=== PATIENT | male | born 1960 | race American Indian/Alaskan Native ===

== ENCOUNTER 2018-02-05 14:44 | Emergency (ER) | payer BC, OTHER ==
[~2018-02-05] VITALS: Ht 172.7 cm; Wt 89.8 kg
[~2018-02-05 14:44] MED LIST: CHLORHEXIDINE118 M1 TOP; CRESTOR20 MG PO; DIALYVITE V5000 UNIT PO; DILTIAZEM ER120 M1 PO; ELIQUIS5 MG PO; ERYTHROMYCIN 2%60 ML TOP; GLUCOPHAGE500 MG PO; LISINOPRIL20 MG PO; OXYBUTYNIN CHLOR5 MG PO; PSYLLIUM HUSK1 GM MISC
[2018-02-05] MEDS ORDERED: LIDOCAINE1 EACH TD (15:02)
[2018-02-05] MEDS ORDERED: FLECTOR1 EACH TOP (15:02)
[2018-02-05] MEDS ORDERED: NORTRIPTYLINE H10 MG PO (15:03)
== END 2018-02-05 16:35 | disposition home or self-care (01) ==
LOC: ED 14:44
DX: S05.02XA Injury of conjunctiva and corneal abrasion without foreign body, left eye, initial encounter (principal); I10 Essential (primary) hypertension; E11.9 Type 2 diabetes mellitus without complications; F17.200 Nicotine dependence, unspecified, uncomplicated; Z88.5 Allergy status to narcotic agent; Z88.8 Allergy status to other drugs, medicaments and biological substances; Z79.84 Long term (current) use of oral hypoglycemic drugs; Z79.899 Other long term (current) drug therapy; Z23 Encounter for immunization; X58.XXXA Exposure to other specified factors, initial encounter; W22.09XA Striking against other stationary object, initial encounter; Y92.89 Other specified places as the place of occurrence of the external cause
CPT/HCPCS: 90471; 90715; 99283

== ENCOUNTER 2018-03-08 15:39 | Emergency (ER) | payer BC, OTHER ==
[~2018-03-08] VITALS: Ht 172.7 cm; Wt 89.8 kg
[~2018-03-08 15:39] MED LIST changes: +FLECTOR1 EACH TOP; +LIDOCAINE1 EACH TD; +NORTRIPTYLINE H10 MG PO
== END 2018-03-08 18:26 | disposition home or self-care (01) ==
LOC: ED 15:39
DX: D72.829 Elevated white blood cell count, unspecified (principal); I10 Essential (primary) hypertension; E11.9 Type 2 diabetes mellitus without complications; F17.200 Nicotine dependence, unspecified, uncomplicated; Z88.5 Allergy status to narcotic agent; Z88.8 Allergy status to other drugs, medicaments and biological substances; Z79.899 Other long term (current) drug therapy; Z79.84 Long term (current) use of oral hypoglycemic drugs
CPT/HCPCS: 80053; 81001; 85025; 96360; 99283; J7030

== ENCOUNTER 2019-11-10 21:13 | Inpatient (IN) | payer BC, OTHER ==
[~2019-11-10] VITALS: Ht 172.7 cm; Wt 94.8 kg
[2019-11-10] MEDS ORDERED: LANTUS100 UNITS/ SUB-Q (21:45)
--- NOTE | 2019-11-11 01:35 | NUR ---
PT ARRIVED TO THE FLOOR VIA STRETCHER, AMBULATED SBA TO BATHROM TO VOID AND NOW RESTING IN BED. SIGNIFICANT OTHER W/ PT. VSS, PT REPORTS TOLERABLE 2/10 PAIN, A/OX4. ABDOMINAL TENDERNESS NOTED, BOWEL TONES ACTIVE. DENIES NAUSEA. IV FLUIDS INFUSING AT 125MLS/HR, SITE WNL. PT DENIES FURTHER NEEDS, CALL LIGHT IN REACH. PT ORIENTED TO ROOM. MOUTH SWABS PROVIED FOR NPO STATUS.
--- NOTE | 2019-11-11 01:48 | NUR ---
VITALS AND WEIGHT DONE AND CHARTED. BEDSIDE TABLE AND CALL LIGHT IN REACH.
--- NOTE | 2019-11-11 03:07 | NUR ---
FAX REQUEST SENT TO TELEPHARMACY FOR RETIMING OF [facility].
--- NOTE | 2019-11-11 06:11 | NUR ---
VS AND I&O'S COMPLETE. PT DENIES NEED FOR PAIN MEDICATION, NO DISTRESS NOTED. FRIEND IN ROOM. IV FLUIDS INFUSING, SITE WNL. NO NEEDS VERBALIZED, CALL LIGHT IN REACH.
--- NOTE | 2019-11-11 06:54 | NUR ---
SPOKE TO DR MARQUIS REGARDING ORDERS FOR INSULIN. THIS RN INFORMED BENITEZ OF CURRENT BS OF 190. TELEPHONE ORDERS READ BACK TO DISCONTINUE CURRENT INSULIN ORDERS AND PUT IN ACCUCHECKS Q6H ALONG WITH REGULAR INSULIN MODERATE SLIDING SCALE Q6H. KEEP PT NPO AT THIS TIME. TELEPHONE ORDERS READ BACK FOR FOR A CHEM 20 AND CBC.
--- NOTE | 2019-11-11 06:56 | NUR ---
PLACED ORDERS FOR [facility] AND CHEM20 FOR PRIMARY GOVIND EDEN. SHE HAD A TORBC FROM DR MARQUIS.
[2019-11-11] MEDS ORDERED: ELIQUIS5 MG PO (07:22)
[2019-11-11] MEDS ORDERED: TOPROL XL25 MG PO (07:23)
[2019-11-11] MEDS ORDERED: LANTUS SOL100 UNIT/1 SUB-Q (07:23)
[2019-11-11] MEDS ORDERED: TRULICITY1.5 MG/0.5 SUB-Q (07:25)
--- NOTE | 2019-11-11 08:05 | NUR ---
PT AWAKE FOR REPORT THIS MORNING, ALERT AND INTERACTIVE. RESTING IN BED IV INFUSING DENIES PAIN. CONTINUES NPO ANTICIPATES MD VISIT
--- NOTE | 2019-11-11 11:24 | NUR ---
PT RESTING IN BED, BOLUS INFUSING. DR MARQUIS IN TO SEE PT TO DISCUSS PLANS FOR SURGERY TOMORROW. SCD'S IN PLACE. 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
--- NOTE | 2019-11-11 14:03 | NUR ---
PT UP INDEPENDANTLY IN THE ROOM APPEARS STEADY ON HIS FEET, USES URINAL REQUESTED. PT DENIES PAIN, NAUSEA, OR OTHER DISCOMFORTS. VISITORS PRESENT X2
--- NOTE | 2019-11-11 17:54 | NUR ---
PT REMAINS AWAKE RESTING IN BED AT THIS TIME, DENIES PAIN THIS ENTIRE SHIFT. TOLERATING CLEAR LIQUIDS NO NAUSEA OR OTHER DISCOMFORTS
--- NOTE | 2019-11-11 18:18 | NUR ---
PATIENT IS AWAKE WATCHING TV, FRESH WATER AND CALL LIGHT IN REACH
--- NOTE | 2019-11-11 19:15 | NUR ---
SHIFT REPORT RECEIVED FROM [facility] GOVIND SALMON AT BEDSIDE. PT RESTING IN BED WITH EYES CLOSED. RR WNL. IV FLUIDS INFUSING. CALL LIGHT IN REACH.
--- NOTE | 2019-11-11 19:43 | NUR ---
NEW BAG OF IV FLUIDS D5LR INFUSING AT 85MLS/HR, SITE WNL. URINAL EMPTIED, SCD'S ON. NO FURTHER REQUESTS, CALL LIGHT IN REACH.
--- NOTE | 2019-11-11 21:55 | NUR ---
ROUNDED CHARGE. PATIENT IS RESTING IN BED. PATIENT RATES PAIN AT A 5/10 IN RUQ. REPORTED TO PRIMARY RN KAREY. PATIENT DENIES ANY FURTHER NEEDS. CALL LIGHT IN REACH.
--- NOTE | 2019-11-11 22:15 | NUR ---
ASSESSMENT COMPLETE, SCHEDULED MEDS GIVEN (SEE EMAR). VSS, APICAL HR 62 BY THIS RN. PT DENIES SOB OR CHEST PAIN, LUNG SOUNDS CLEAR. SCHEDULED TYLENOL AND PRN TORADOL GIVEN FOR 6/10 ABDOMINAL PAIN. PT REPORTS BURNING WHEN FLUSHING, NEW IV SITE PLACED INRIGHT FOREARM, IV ABX NOW INFUSING. SITE WNL. BOWEL TONES ACTIVE. NO FURTHER NEEDS, CALL LIGHT IN REACH.
--- NOTE | 2019-11-11 23:45 | NUR ---
WATER AT BEDSIDE REMOVED, PT MADE NPO AT THIS TIME. CALL LIGHT IN REACH, NO ADDITIONAL NEEDS VERBALIZED.
--- NOTE | 2019-11-12 00:54 | NUR ---
PT RESTING IN BED WITH EYES CLOSED. RR EVEN AND UNLABORED, NO DISTRESS NOTED. PT APPEARS COMFORTABLE, CALL LIGHT IN REACH. SCD'S ON. IV FLUIDS INFUSING AT 85MLS/HR.
--- NOTE | 2019-11-12 01:04 | NUR ---
CALL LIGHT ANSWERED. SBA TO RESTROOM FOR VOID AND BACK TO BED. IVF INFUSING WNL. CALL LIGHT IN REACH. NO ADDITIONAL REQUESTS.
--- NOTE | 2019-11-12 02:00 | NUR ---
VITALS AND I&OS DONE AND CHARTED. BEDSIDE TABLE AND CALL LIGHT IN REACH. PT NEEDS NOTHING MORE AT THIS TIME.
--- NOTE | 2019-11-12 02:42 | NUR ---
ROUNDING ON PT, RESPIRATIONS EVEN AND UNLABORED. NO SIGNS OF DISTRESS NOTED. IV FLUIDS INFUSING, SITE WNL. PT REPORTING FEELING OF HUNGER, PRN ACCUCHECK 164. PT REMAINS NPO, ABD TENDERNESS TO LUQ NOTED. NO NAUSEA REPORTED. SCD'S ON, CALL LIGHT IN REACH.
--- NOTE | 2019-11-12 04:06 | NUR ---
PT HAD AN UNEVENTFUL NIGHT, SLEPT OFF AND ON. VSS, A/OX4, USES CALL LIGHT APPROPERIATELY. SBA WITH AMBULATION, SCD'S ON. PAIN CONTROLLED WITH SCHEDULED AND PRN PAIN MEDICATIONS. D5LR INFUSING AT 85MLS/HR, SITE WNL. PT NPO, SCHEDULED ACCUCHECKS AND INSULIN SS.
--- NOTE | 2019-11-12 05:28 | NUR ---
HELPED PT TO THE SIDE OF THE BED TO USE HIS URINAL. VITALS AND I&OS DONE AND CHARTED. BEDSIDE TABLE AND CALL LIGHT IN REACH.
--- NOTE | 2019-11-12 05:57 | NUR ---
per md order, okay for pt to have scheduled po meds. scheduled tylenol given with small sip of water. iv abx infusing, site wnl. pt rports pain a tolerable 2/10. scd's on. lr w/ straight tubing primed and hanging in room for surgery.
--- NOTE | 2019-11-12 08:15 | NUR ---
PATIENT SITTING UP ON THE EDGE OF THE BED. EMPTY URINAL. CALL LIGHT WITHIN REACH. NO OTHER NEEDS AT THIS TIME
--- NOTE | 2019-11-12 09:02 | NUR ---
PATIENT RESTING IN BED. VITAL SIGNS AND I&O DONE. CALL LIGHT WITHIN REACH. NO OTHER NEEDS AT THIS TIME
--- NOTE | 2019-11-12 09:30 | NUR ---
PT SITTING UP IN BED AWAKE, ALERT AND ORIENTED TO ALL. DENIES PAIN OR NAUSEA AT THIS TIME. ASSESSMENT COMPLETED. PT DENIES QUESTIONS, NEEDS, OR CONCERNS AT THIS TIME. CALL LIGHT WITHIN REACH.
--- NOTE | 2019-11-12 09:50 | NUR ---
Spoke with Derrell. He is awaiting surgery this afternoon. Lives in [facility] with his , Christiane. 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 Denies use of DME. Plans to go home with his on discharge.
--- NOTE | 2019-11-12 11:20 | NUR ---
PT CALLED REGARDING IV. IV SITE WITH NOTABLE LOCALIZED BASEBALL SIZE INFILTRATION. NO PAIN REPORTED, NO REDNESS VISUALIZED. IV DC'D AND NEW IV STARTED IN RIGHT FA BY REBEKAH SCHAEFFER RN. IVF RESTARTED.
--- NOTE | 2019-11-12 11:21 | NUR ---
PATIENT RESTING IN BED. PATIENT WIPE DOWN FOR SURGERY. CALL LIGHT WITHIN REACH. NO OTHER NEEDS AT THIS TIME
--- NOTE | 2019-11-12 13:10 | NUR ---
PT SITTING UP IN BED. DENIES PAIN OR OTHER NEEDS OR CONCERNS AT THIS TIME. CALL LIGHT WITHIN REACH.
--- NOTE | 2019-11-12 13:33 | NUR ---
PATIENT RESTING IN BED. IN ROOM. VITAL SIGNS AND I&O DONE. CALL LIGHT WITHIN REACH. NO OTHER NEEDS AT THIS TIME
--- NOTE | 2019-11-12 13:48 | NUR ---
PT RESTING IN BED, ALERT, ORIENTED AND WAITING FOR SURGERY LATER THIS PM. DR MARQUIS IS SCHEDULED FOR SURGERY, PT SEEMS PREPARED. MENTIONED THAT HE IS TIRED OF FEELING BAD. PT REQUESTED PRAYER, WILL FOLLOW NEEDED
--- NOTE | 2019-11-12 14:10 | NUR ---
PT TRANSPORTED TO OR FOR SCHEDULED PROCEDURE.
--- NOTE | 2019-11-12 14:50 | HP ---
[facility] [address] [place], [place] [address] Signed ADMISSION DATE: 11/11/2019 REASON FOR ADMISSION: Acute calculous cholecystitis, probable choledocholithiasis. HISTORY: This 59-year-old white man lives in [place], [place] and has had increasing epigastric and right subcostal pain for the past few weeks. He has been taking antacids for this, which has been actually somewhat beneficial from time to time. He is known to this institution having undergone colonoscopy by Dr. Hector Davis in 2016 as well as upper endoscopy. He had a normal upper endoscopy at that time. He had hemorrhoidal disease as well as a small left-sided prostate nodule. His pain worsened and he presented to the emergency room and was evaluated by Dr. Doan and found to have epigastric pain and tenderness, on that basis underwent imaging study to include ultrasound of the gallbladder. This demonstrated at least one stone in the gallbladder with a hydropic gallbladder and dilated common bile duct. Notably lab studies showed signs of possible biliary obstruction with a presenting total bilirubin of 2.3 and alkaline phosphatase of 446, ALT 240, and AST of 235. Subsequent lab studies this morning show an increased bilirubin to 3.0, direct component 2.0, and AST decreased to 114, ALT to 196, and alkaline phosphatase now 405. He continues to have pain in the epigastric and right subcostal area. The patient has had no nausea or vomiting while hospitalized. He is additionally noted to have an elevated white count at presentation of 14.3, subsequently today 12.3, hematocrit of 38.2. It is notable that he is chronically anticoagulated with Eliquis for what sounds like paroxysmal atrial fibrillation, though that is not entirely certain. The patient also has insulin-dependent diabetes mellitus as well as hypertension. MEDICATIONS: Currently include Eliquis, Lantus insulin, lisinopril, oxybutynin, Toprol-XL, and Trulicity. REVIEW OF SYSTEMS: He denies any precordial chest pain or shortness of breath or dysphagia. He has had no blood per rectum. Electronically Signed By: LAURA MARQUIS MD 11/12/19 1450 PATIENT NAME: DEEPIKA FAIR HISTORY AND PHYSICAL DATE OF : 62 REPORT #: [id number] PHYSICIAN: LAURA MARQUIS MD PCP: AMY HOLGUIN REPORT IS CONFIDENTIAL AND NOT TO BE RELEASED WITHOUT AUTHORIZATION [facility] [address] [place] [address] Signed SOCIAL HISTORY: He is . He lives in [place], [place]. He sees Amy Holguin at [facility]. PHYSICAL EXAMINATION: GENERAL: Pleasant yurok man, who looks to be in no severe distress at this time. He is not systemically toxic. HEENT: Mucous membranes are dry. Trachea is midline. He has no carotid bruit. CHEST: Clear. HEART: Regular without murmur. I detect no ectopy at this time. ABDOMEN: Obese, but soft generally. There is tenderness to deep palpation in the epigastric and right subcostal area. There is no palpable mass. The clinical jaundice is not yet apparent. EXTREMITIES: Show no clubbing, cyanosis, or edema. LABORATORY STUDIES: This morning show white count of 12.3, hematocrit of 38.2, platelets 327,000. His Chem profile shows normal electrolytes, creatinine of 0.98, glucose of 193, uric acid 4.1, phosphorus 2.2, bilirubin 3.0, direct component 2, indirect 1. AST is 140, ALT 196, alkaline phosphatase 405, total protein is 5.6. Lipase yesterday was 48. I have reviewed his ultrasound in detail, which shows a visible gallbladder wall at least one stone in the lumen of the gallbladder and possibly dilated common bile duct as noted on image 11 of 39, series 1. Additionally, image 33 of 39. ASSESSMENT: Patient clearly has acute calculous cholecystitis and may well have choledocholithiasis. His liver enzymes are highly suggestive of that. I discussed with him in detail the pathophysiology of biliary disease and recommendation of treatment to include cholecystectomy preferred by laparoscopic approach. It is notable, however, that he does take Eliquis, a thrombin inhibitor which has no reliable antidote and on that basis, a deferral of operation until at least tomorrow would be prudent. He last took his dosage yesterday morning. He is now at 24 hours. A 48-hour window would be preferable. I would anticipate laparoscopic cholecystectomy with cholangiogram and laparoscopic common duct exploration. Clearance of the duct may require an open procedure to include open common duct exploration, T-tube and so forth we discussed this. For now, we will manage his diabetes with sliding scale insulin. We may consider consultation with the hospitalist to assist in this endeavor. He will be maintained on his usual medications other than the Eliquis. We will allow clear liquids in minimal amounts for comfort. He needs additional fluid resuscitation at this time. Feeding Electronically Signed By: LAURA MARQUIS MD 11/12/19 1454 PATIENT NAME: DEEPIKA FAIR HISTORY AND PHYSICAL DATE OF : 62 REPORT #: [id number] PHYSICIAN: LAURA MARQUIS MD PCP: AMY HOLGUIN REPORT IS CONFIDENTIAL AND NOT TO BE RELEASED WITHOUT AUTHORIZATION [facility] [address] [place], [place] [address] Signed would be contraindicated as it may worsen his situation. The risks of bleeding, infection, bile duct injury, need for open procedure and other unforeseen complications was reviewed in detail with him. He understands and wished to proceed. MD LINA Carlin/JASVIRL /[id number] cc: MD Amy Hutchison Copies: JOSH DOAN MD, ELIZABETH ~ Electronically Signed By: LAURA MARQUIS MD 11/12/19 1450 PATIENT NAME: DEEPIKA FAIR HISTORY AND PHYSICAL DATE OF : 62 REPORT #: [id number] PHYSICIAN: LAURA MARQUIS MD PCP: AMY HOLGUIN REPORT IS CONFIDENTIAL AND NOT TO BE RELEASED WITHOUT AUTHORIZATION
--- NOTE | 2019-11-12 19:18 | NUR ---
11/12/191917 Geraldine Bills 190: PT ARRIVES TO PACU FROM OR WITH EYES CLOSED ON 8L VIA MASK. PT RESP EVEN AND UNLABORED. PT DOES NOT AROUSE TO VERBAL OR PAINFUL STIMULI. REBEKA SANCHEZ AT BEDSIDE GOVIND VALENTE ASSISTING.
--- NOTE | 2019-11-12 19:31 | NUR ---
RECEIVED REPORT ON PT, HE IS IN PACU AT THIS TIME.
--- NOTE | 2019-11-12 21:00 | NUR ---
PT TRANSFERED TO CCU VIA STRETCHER BY MULTI PUNCH OPERATOR, ACCOMPANIED BY DR HARKINS. PT REPORT RECIEVED AT THIS TIME. PT ALERT AND ORIENTED, NO COMPLAINTS OF PAIN OR NAUSEA. PT CURRENTLY IN SINUS RHYTHM AT A RATE OF 80-90 BEATS PER MINUTE. ALL OTHER VS WNL. PT ON 5 L NC IN PACU, CURRENTLY HAS O2 SATS AT 96 PERCENT ON 2 L NC.
--- NOTE | 2019-11-12 22:30 | NUR ---
SCHEDULED MEDICATIONS ADMINISTERED. IV FLUIDS INFUSING AT RATE OF 85 MLS/ HR. PT LESS DROWSY, CONTINUES TO DENY PAIN OR NAUSEA. CALL LIGHT WITHIN REACH. REAMINS VISIBLE FROM NURSES STATION. NO FURTHER NEEDS AT THSI TIME.
--- NOTE | 2019-11-12 23:58 | NUR ---
IN ROOM TO CHECK ON PATIENT, HE REPORTS AN INCREASE IN ABD PAIN AT INCISION SITE. PRN MEDICATION GIVEN (SEE EMAR). ASSESSMENT COMPLETED. PT ASKING QUESTIONS ABOUT EPISODE OF SVT, AND SURGERY. ALL QUESTIONS ANSWERED. CALL LIGHT WITHIN REACH. NO FURTHER NEEDS AT THIS TIME.
--- NOTE | 2019-11-13 01:00 | NUR ---
IN ROOM TO ASSESS PT PAIN, PT SLEEPING. BREATHING EVEN AND UNLABORE R=18. IN SINUS RHYTHM ON THE MONITOR WITH HR IN THE 70S. CALL LIGHT WITHIN REACH. NO FURTHER ASSESSED NEEDS AT THIS TIME.
--- NOTE | 2019-11-13 02:20 | NUR ---
PT ON ROOM AIR AT THIS TIME. SPO2 AT 94 PERCENT. WILL CONTINUE TO MONITOR.
--- NOTE | 2019-11-13 04:30 | NUR ---
IN ROOM FOR ASSESSMENT. PT STATES PAIN IS UNDER CONTROL, DENIES THE NEED FOR PRN PAIN MEDICATION. ASSISTED PT WITH REPOSITIONING IN THE BED. EMPTIED T TUBE AND SHAYY DRAIN. PT USED IS. FURTHER DISCUSSED PLAN OF CARE FOR THE MORNING. CALL LIGHT WITHIN REACH. NO FURTHER NEEDS AT THIS TIME
--- NOTE | 2019-11-13 06:53 | EKG ---
[facility] [address] [facility] [place] [address] Signed Sinus rhythm with occasional and consecutive premature ventricular complexes and fusion complexes Abnormal ECG No previous ECGs available Confirmed by PARTHA HARKINS MD ([id number]) on 11/13/2019 6:53:12 AM Electronically Signed By: PARTHA HARKINS MD 11/13/19 0653 PATIENT NAME: DEEPIKA FAIR NEY Electrocardiogram DATE OF : 62 PHYSICIAN: PARTHA HARKINS MD REPORT #: [id number] REPORT IS CONFIDENTIAL AND NOT TO BE RELEASED WITHOUT AUTHORIZATION
--- NOTE | 2019-11-13 06:53 | EKG ---
[facility] [address] [facility] [place] [address] Signed Undetermined rhythm Right bundle branch block Abnormal ECG When compared with ECG of 12-NOV-2019 14:54, (Unconfirmed) Current undetermined rhythm precludes rhythm comparison, needs review Right bundle branch block is now present Confirmed by PARTHA HARKINS MD ([id number]) on 11/13/2019 6:53:35 AM Electronically Signed By: PARTHA HARKINS MD 11/13/19 0653 PATIENT NAME: KYRIE FIARAURORA BREWSTER Electrocardiogram DATE OF : 62 PHYSICIAN: PARTHA HARKINS MD REPORT #: [id number] REPORT IS CONFIDENTIAL AND NOT TO BE RELEASED WITHOUT AUTHORIZATION
--- NOTE | 2019-11-13 08:22 | NUR ---
MORPHINE 6 MG IV GIVNE FOR POST-OP PAIN.
--- NOTE | 2019-11-13 08:30 | NUR ---
ASSESSMENT COMPLETE. C/O POST-OP PAIN. IVF AND SALMERON CATH PATENT. TALKED WITH PATIENT ABOUT POC FOR DAY, IS UNDERSTANDING.
--- NOTE | 2019-11-13 09:00 | NUR ---
STATES PAIN IS MUCH LESS NOW. SITTING UP IN BED TO TAKE CL.LIQ BREAKFAST. PATIENT KNOWS HE CAN HAVE MORE TO EAT IF HE WISHES.
--- NOTE | 2019-11-13 09:59 | NUR ---
...........PT EDUCATION........ IN TALKING WITH PT THIS AM DUE TO LAP RAHEEM BECOMING AN OPEN RAHEEM WITH DRAINS, EDUCATIONAL MATERIAL GIVEN REGARDING AFTER CARE OF OPEN RAHEEM, GALLBLADDER DIET, DRAINAGE TUBE CARE AT HOME, AND FORM FOR KEEPING TRACT OF HOW MUCH DRAINAGE. WE DISCUSSED THIS SOMEWHAT BUT PT REALLY TIRED, HE DEMONSTATED COUGHING AND DEEP BREATHING AND USING AN ABD SPLINT PILLOW FOR MOVING AND COUGHING AND DEEP BREATHING. WE TALKED THAT I WOULD RETURN AT ANOTHER TIME WHEN HIS IS HERE PER HIS WISHES.
--- NOTE | 2019-11-13 12:20 | NUR ---
UP TO CHAIR. SPONGE BATH GIVEN. AFTER BATH PATIENT AMBULATED IN HALLWAY. TOLERATED WELL.
--- NOTE | 2019-11-13 13:20 | NUR ---
MORPHINE 6 MG IV REPEATED FOR C/O POST OP PAIN. CONTINUES TO SIT IN CHAIR.
--- NOTE | 2019-11-13 16:29 | NUR ---
DR. MARQUIS UPDATED ON PATIENT. ORDERS RECIEVED TO TRANSFER TO MEDICAL FLOOR. SALMERON CATH DC'D, MONITOR DC'D
--- NOTE | 2019-11-13 16:45 | NUR ---
REPORT TO MED-SURG.
--- NOTE | 2019-11-13 17:01 | NUR ---
NEW ADMIT TO THE FLOOR. PT AWAKE, A&OX4. PT IS ON RA, RESP EVEN AND NON LABORED. IV FLUIDS INFUSING. PT DENIES PAIN AND OR DISCOMFORT. DINNER ORDERED. NO NEEDS AT THIS TIME. CALL LIGHT WITHIN REACH. ORIENTED PT TO ROOM AND CALL LIGHT SYSTEM.
--- NOTE | 2019-11-13 17:41 | NUR ---
PATIENT SITTING IN CHAIR WATCHING TV. CALL LIGHT IN REACH. NO FURTHER NEEDS AT THIS TIME.
--- NOTE | 2019-11-13 18:46 | NUR ---
ADMIN IBUPORFEN 600MG PO FOR 4/10 ABD PAIN.
--- NOTE | 2019-11-13 19:08 | NUR ---
IN ROOM FOR REPORT, PT IS AWAKE IN BED. HE DENIES NEEDS AT THIS TIME. CALL LIGHT IS CLOSE.
--- NOTE | 2019-11-13 22:40 | NUR ---
IN ROOM TO ASSESS PT AND ADMINISTER MEDICATIONS. ADMINISTERED TYLENOL FOR 5/10 PAIN. PT REPORTS IT FEELING SORE AND HE IS JUST MOVING SLOWLY. ASSISTED PT TO THE RESTROOM AND BACK TO BED. DRESSINGS ARE ALL INTACT AND THERE IS SOME SLIGHT SHADOWING ON GAUZE. SHAYY IS DRAINING SEROSANGUINOUS DRAINAGE AND T-TUBE IS DRAINING YELLOW. PT DENIES FURTHER NEEDS AT THIS TIME. CALL LIGHT IS CLOSE.
--- NOTE | 2019-11-14 00:07 | NUR ---
PT IS RESTING WITH EYES CLOSED, RR IS EVEN AND NONLABORED CALL LIGHT IS CLOSE.
--- NOTE | 2019-11-14 02:24 | NUR ---
PT IS RESTING WITH EYES CLOSED, RR IS EVEN AND NONLABORED. CALL LIGHT IS CLOSE.
--- NOTE | 2019-11-14 04:12 | NUR ---
PT IS RESTING WITH EYES CLOSED, RR IS EVEN AND NONLABORED. CALL LIGHT IS CLOSE.
--- NOTE | 2019-11-14 05:45 | NUR ---
ADMINISTERED ANCEF AND TYLENOL PT DENIES FURTHER NEEDS AT THIS TIME. DRESSING ARE CDI WITH SLIGHT SHADOWING NOTED ON GAUZE. PT USED URINAL AND STATES HE IS PASSING ALOT OF GAS WHICH IS HELPING DECREASE PAIN. CALL LIGHT IS CLOSE AND IV IS INFUSING FINE.
--- NOTE | 2019-11-14 08:00 | NUR ---
PATIENT UP TO BATHROOM THEN TO CHAIR FOR BREAKFAST. HANDS AND FACE WASHED. FRESH LINENS. CALL BUTTON IN REACH. TALKED TO PATIENT ABOUT BATH AND ORAL CARE AFTER BREAKFAST. NO OTHER NEEDS AT THIS TIME.
--- NOTE | 2019-11-14 09:15 | NUR ---
Spoke with Jd. He is up in chair with cough pillow. States he feels better today, but still not feeling that well. Pt. denies further needs at this time. Plans to dc to home to [place] when he is released by Dr. Church, unsure of day.
--- NOTE | 2019-11-14 11:10 | PATH ---
[facility] [address] [place], [place] [address] Signed SPECIMEN(S): A GALLBLADDER AND GALLSTONES SPECIMEN(S): B INDER CHOLECYSTIC LYMPH NODE SPECIMEN SOURCE: A. GALLBLADDER AND GALLSTONES B. INDER CHOLECYSTIC LYMPH NODE CLINICAL HISTORY: Cholecystitis, acute calculous, probable choledocholithiasis, acute cholecystitis with common duct stone. FINAL PATHOLOGIC DIAGNOSIS: A. Gallbladder, cholecystectomy: - Acute on chronic cholecystitis. - Cholelithiasis. B. Lymph node, pericholecystic, excisional biopsy: - One benign reactive lymph node. NAL:cml:C2NR MICROSCOPIC EXAMINATION: Histologic sections of all submitted blocks are examined by light microscopy. These findings, together with the gross examination, support the pathologic diagnosis. GROSS DESCRIPTION: Two specimens are received in two containers, labeled "GW." A. The specimen, labeled "A," and designated on the requisition "gallbladder," is received in formalin and consists of Specimen: Intact, previously opened gallbladder. Dimensions: 12.2 x 4.9 x 2.7 cm. Serosa: Purple and smooth. Cystic Duct: Unobstructed. Calculi: Three smooth, dark brown choleliths ranging from 1.0-1.3 cm in greatest dimension. Mucosa: Mayes-brown and velvety. Wall thickness: 0.3 cm. Lymph node: No pericystic lymph nodes are grossly identified. Additional: None. Credit Collections Specialist sections are submitted in cassette (A1). B. The specimen, labeled "B," and designated on the requisition "pericholecystic node," is received in formalin and consists of a 2.4 x 2.1 x PATIENT NAME: DEEPIKA FAIR PATHOLOGY DATE OF : 62 REPORT #: [id number] PHYSICIAN: JOHNNIE DE ANDA PCP: JOYCE HOLGUIN REPORT IS CONFIDENTIAL AND NOT TO BE RELEASED WITHOUT AUTHORIZATION [facility] [address] [place] [address] Signed 0.5 cm segment of soft, ragged, mayes-purple tissue. Within the tissue aggregate is a 1.1 x 1.0 x 0.5 cm smooth, mayes-brown nodule consistent with a possible lymph node. The nodule is serially sectioned, revealing a smooth, mayes cut surface and is submitted entirely in (B1). KM (under the direct supervision of a pathologist) The Gross Description was prepared using a voice recognition system. The report was reviewed for accuracy; however, sound-alike word errors, addition and/or deletions may occur. If there is any question about this report, please contact Client Services. PERFORMING LABORATORY: The technical component was performed by [facility], [address] [place] [id number] (Screw Cutter: Dee Eason MD; CLIA# [id number]). [facility], [address] [address] (CLIA# [id number]). Diagnostician: Regine Cortez MD Pathologist Electronically Signed 11/14/2019 Copies: ~ PATIENT NAME: DEEPIKA FAIR PATHOLOGY DATE OF : 62 REPORT #: [id number] PHYSICIAN: JOHNNIE PATHOLOGY PCP: JOYCE HOLGUIN REPORT IS CONFIDENTIAL AND NOT TO BE RELEASED WITHOUT AUTHORIZATION
--- NOTE | 2019-11-14 12:56 | NUR ---
PT SITTING IN CHAIR WATCHING TV. PT GRIMACED WHEN HE REPOSITIONING IN CHAIR. COSMETIC MAKER AND SORE FROM SURGERY. PT ALSO STATED HE DIDN'T SLEEP WELL LAST NIGHT. PT IS ALERT AND ORIENTED AND CARRIED ON GOOD CONVERSATION. PT THANKED ME FOR SPENDING TIME WITH HIM EXTENDED A BLESSING, AND WILL FOLLOW NEEDED
--- NOTE | 2019-11-14 13:55 | NUR ---
PATIENT WAS ADMITTED AT HIGH RISK FOR MALNUTRITION DUE TO EATING POORLY PRIOR TO ADMISSION AND UNSURE OF WEIGHT LOSS. HIS APPETITE IS MUCH BETTER POST-OP FROM 11/11. CURRENT DIET IS 60 GM CONSISTENT CARB. WILL CONTINUE TO MONITOR.
--- NOTE | 2019-11-14 14:15 | NUR ---
PT BACK FROM WALKING LOOP AROUND NURSES STATION, INCREASED FLATUS, STATES HE IS ALSO STARTING TO HAVE CRAMPING AND NEEDS SOMETHING STRONGER THAN THE TYLENOL FOR PAIN, MORPHINE 2MG IV GIVEN, SHAYY IS SECURE WITH SMALL AMOUNT OF RED SERROUS FLUID, T-TUBE IS SECURE WITH RAMOS DRAINAGE, NO LEAKING. MUCH MORE ACTIVE TODAY, IN GOOD SPIRITS.
--- NOTE | 2019-11-14 18:11 | NUR ---
ATE 100% OF DINNER, REPORTS PAIN BETTER, CONT. TO PASS FLATUS , SHAYY AND T-TUBE ARE SECURE AND PATENT. PT DENIES ANY NEEDS, SITTING UP IN RECLINER.
--- NOTE | 2019-11-14 19:13 | NUR ---
IN ROOM FOR REPORT, PT IS AWAKE IN CHAIR. HE DENIES NEEDS AT THIS TIME. CALL LIGHT IS CLOSE.
--- NOTE | 2019-11-14 22:30 | NUR ---
ADMINISTERING MEDICATIONS AND ASSESSING PT. PT IN 04/28 PAIN AT STATES THAT HE FEELS LIKE HE DOES NOT KNOW WHATS GOING ON AND HOW HE IS DOING. WE DISCUSSED THE PROGRESS HE IS MAKING AND WHY WE ARE ASKING CERTAIN QUESTIONS IN OUR ASSESSMENTS. WE DISCUSSED PAIN CONTROL AND HOW MORPHINE IS A LAST RESORT BUT IF IT IS THE ONLY WAY HE CAN GET COMFORTABLE AND IF HE IS TOO PAINFUL TO AMBULATE THAT HE CAN TAKE IT TOO. PT STATES HE FEELS MUCH BETTER NOW AFTER TALKING ABOUT EVERYTHING. SEE ASSESSMENT AND EMAR. PT DENIES FURTHER NEEDS AT THIS TIME. MORPHINE ADMINISTERED, IV IS INFUSING FINE AND CALL LIGHT IS WITHIN REACH.
--- NOTE | 2019-11-15 00:03 | NUR ---
PT IS RESTING WITH EYES CLOSED, RR IS EVEN AND NONLABORED. CALL LIGHT IS CLOSE, SCDS IN PLACE.
--- NOTE | 2019-11-15 02:55 | NUR ---
PT IS RESTING WITH EYES CLOSED, RR IS EVEN AND NONLABORED. CALL LIGHT IS CLOSE.
--- NOTE | 2019-11-15 04:17 | NUR ---
PT IS RESTING WITH EYES CLOSED, RR IS EVEN AND NONLABORED. CALL LIGHT IS WITHIN REACH.
--- NOTE | 2019-11-15 05:26 | NUR ---
FRESH WATER AT BEDSIDE, PT DENIES NEEDS AT THIS TIME. DRESSINGS ARE INTACT WITH SOME OLD SHAWDOWING NOTED. CALL LIGHT IS CLOSE AND SCDS ARE ON.
--- NOTE | 2019-11-15 08:30 | NUR ---
PT IS UP ABOUT ROOM, IN [employer] SPIRITS, GOOD APPETITE, WILL BE GOING FOR CHOLANGIOGRAM @ 1200, DENIES ANY NEEDS.
--- NOTE | 2019-11-15 09:15 | NUR ---
Pt walking in room, awaiting breakfast. States feeling well. Plans to dc after cholangiogram. Denies needs.
--- NOTE | 2019-11-15 10:27 | NUR ---
WALKING LOOP AROUND NURSES STATION, VISITING WITH STAFF, DENIES ANY NEEDS.
--- NOTE | 2019-11-15 11:06 | NUR ---
DID PATIENT BLOOD SUGAR CHECK. ORDERED PATIENT'S BREAKFAST. UP WALKING UP IN ROOM.
--- NOTE | 2019-11-15 11:36 | NUR ---
PT ALERT, ORIENTED AND AMBULATING IN CLAY. PT IS WALKING SLOWLY AND RATHER DELIBERTLY WITH A BLANKET ON HIS ABDOMEN, BUT WITH A SMILE. PT ENGAGED IN CONVERSATION, SHARING HIS OCCUPATION AND THAT HE DRIVES 70 MS TWICE DAILY TO GET TO AND FROM WORK. LOVES HIS JOB, FEELS HE IS MAKING A DIFFERENCE. PT DID MENTION THAT HE IS FEELING BETTER, LOOKING FORWARD TO [place]. GOOD VISIT, WILL FOLLOW NEEDED
--- NOTE | 2019-11-15 12:03 | NUR ---
PT OFF THE UNIT TO IMAGING DEPT FOR PROCEDURE.
--- NOTE | 2019-11-15 13:16 | NUR ---
PATIENT STATES HIS APPETITE IS FAIR. HE IS EATING BECAUSE HE KNOWS HE HAS TO. HE FEELS A LITTLE BLOATED AND HAS SINCE HIS FIRST DAY HERE. HE HAS HAD DIABETES FOR AWHILE. HE CHECKS HIS BLOOD SUGAR REGULARLY ONCE A DAY IN THE AM AT HOME - AVERAGE IS AROUND 150. SOMETIMES HE CHECKS IT AT NIGHT WHEN HE THINKS ABOUT IT. HE FEELS GOOD WHEN HIS BLOOD SUGARS ARE 150. HIS IS ALSO DIABETIC. THEY DON'T FOLLOW ANY SPECIFIC MEAL PLAN. HE STATES "I JUST WATCH WHAT I EAT." HIS LAST A1C WAS 8.1 WHICH IS DOWN FROM 8.3 PER PATIENT. HE FOLLOWS UP FOR CARE AT [facility]. HE IS ON A 60 GRAM CONSISTENT CARB DIET. I EXPLAINED WHAT THIS MEANS AND THE GRAMS OF CARBS ARE LISTED ON THE MENU. HE HAS NO FURTHER QUESTIONS OR DIETARY CONCERNS AT THIS TIME. WILL CONTINUE TO MONITOR.
--- NOTE | 2019-11-15 15:00 | NUR ---
PT REQUESTED PAIN MEDICATION AFTER WALKING LOOP AGAIN, MORPHINE 2MG IV, HERE TO VISIT.
--- NOTE | 2019-11-15 16:35 | NUR ---
PATIENT WALKED 11 LAPS SO FAR AROUND MED SURG TODAY.
--- NOTE | 2019-11-15 18:09 | NUR ---
PT SITTING UP IN RECLINER REPORTS PAIN IS TOLERABLE AT THIS TIME. HE REPORTS HE IS PASSING MORE GAS AND THAT FEELS GOOD.
--- NOTE | 2019-11-15 19:09 | NUR ---
RECEIVED REPORT FROM GOVIND MCCULLOUGH. pt SITTING IN CHAIR. CALL LIGHT WITHIN REACH. NO REQUESTS AT THIS TIME. WHITEBOARD UPDATED.
--- NOTE | 2019-11-15 21:10 | NUR ---
ASSESSMENT DONE. DRAINS INTACT, NO NEW DRAINAGE NOTED ON DRESSINGS. pt UP TO VOID AND BACK TO BED. MEDICATIONS GIVEN (SEE MAR). CALL LIGHT WITHIN REACH.
--- NOTE | 2019-11-15 23:33 | NUR ---
ROUNDED ON pt. RESTING WITH EYES CLOSED, RESPIRATIONS REGULAR AND UNLABORED. CALL LIGHT WITHIN REACH.
--- NOTE | 2019-11-16 02:35 | NUR ---
ROUNDED ON pt. RESTING WITH EYES CLOSED, RESPIRATIONS REGULAR. CALL LIGHT WITHIN REACH.
--- NOTE | 2019-11-16 05:43 | NUR ---
ROUNDED ON pt. pt WOKE QUICKLY TO VOICE. UP TO VOID AND BACK TO BED. ASSESSMENT DONE. STATED HIS PAIN WAS "FINE" SCHEDULED MEDICATION GIVEN (SEE MAR). SHAYY DRAIN EMPTIED. DRESSING CDI, NO NEW SHADOWING NOTED. CALL LIGHT WITHIN REACH. PROVIDED COFFEE.
--- NOTE | 2019-11-16 07:30 | NUR ---
DID PATIENT'S BLOOD SUGAR CHECK. WASHED HIS FACE. ASKED HIM IF HE WOULD LIKE TO SIT UP IN THE CHAIR FOR BREAKFAST AND HE SAID HE WAS COMFORTABLE IN HIS BED. ASKED HIM ABOUT A BED BATH OR SHOWER AND HE SAID MAYBE.
--- NOTE | 2019-11-16 07:32 | NUR ---
ALSO WE ORDERED HIS BREAKFAST.
--- NOTE | 2019-11-16 07:32 | NUR ---
0700: Report received from Tressa FAUST. Pt resting in his bed and he denies any nausea or pain at this time. Call little within reach.
--- NOTE | 2019-11-16 08:49 | NUR ---
PT SITTING UP IN HIS CHAIR AND HAS BEEN AMBULATING IN HIS ROOM. HE STATES HIS PAIN IS CONTROLED AND HE DENIES ANY NAUSEA AFTER HAVING ATE 100% OF HIS BREAKFAST. ABD DRESSING NOTED TO HAVE OLD DRAINAGE BUT ARE DRY AND NO NOT S/S OF INFECTION. SHAYY DRAIN INTACT AND FUNCTIONING WELL AND T-TUBE IS CAPPED. CALL RICE WITHIN REACH AND PT DENIES ANY NEW PROBLEMS.
--- NOTE | 2019-11-16 09:48 | NUR ---
Spoke with Jd, he has been walking in the halls and in the room today. States he feels well and is going home. Denies any needs for dc. will drive him home.
--- NOTE | 2019-11-16 10:20 | NUR ---
Pt states his pain is "good". He also had a "normal" bowel movement which was formed but not hard. He denies any problems at this time.
--- NOTE | 2019-11-16 11:40 | NUR ---
DID PATIENT'S BLOOD SUGAR CHECK. PATIENT HAS NICOLE. I WILL ASK HIM ONE MORE TIME IF HE WOULD LIKE TO TAKE A SHOWER OR A BED BATH.
--- NOTE | 2019-11-16 11:56 | NUR ---
PT SITTING IN CHAIR WATCHING TV. BIG SMILE, PT STATED, "THINGS ARE STARTING TO WORK"! PT IS REALLY LOOKING FORWARD TO DC TODAY. THIS HAS BEEN HARD ON HIS SIG OTHER. VERY PLEASANT TO VISIT WITH. EXTENDED A BLESSING, WILL FOLLOW NEEDED
--- NOTE | 2019-11-16 13:23 | NUR ---
1235: PT RESTING IN HIS CHAIR SPEAKING WITH HIS VISITOR. HE DENIES ANY PROBLEMS AT THIS TIME.
--- NOTE | 2019-11-16 13:42 | NUR ---
Pt ambulating in the halls at this time. Pt is steady on his feet.
--- NOTE | 2019-11-16 13:44 | NUR ---
Call from Yanni from [facility]. She requests discharge papers to be faxed. Let her know they are not been written, but I will fax on Tuesday when I return. Yanni fax [phone].
[2019-11-16] MEDS ORDERED: TYLENOL EXTRA500 MG PO (13:47)
[2019-11-16] MEDS ORDERED: IBUPROFEN600 MG PO (13:47)
--- NOTE | 2019-11-17 10:23 | OR ---
[facility] [address], [place] [address] Signed DATE OF OPERATION: 11/12/2019 SURGEON: Laura Marquis MD PREOPERATIVE DIAGNOSES: 1. Acute cholecystitis with jaundice. 2. History of thrombin inhibitor therapy (abstinent for 48 hours now). POSTOPERATIVE DIAGNOSIS: Severe acute cholecystitis with large obstructing common duct stone. PROCEDURES: 1. Laparoscopy with laparoscopic common duct exploration and extraction of small stone. 2. Conversion to open cholecystectomy with open common duct exploration, extraction of large common bile duct stone. 3. Flexible choledochoscopy and placement of T-tube. 4. Surgeon-directed fluoroscopy. 5. Excision of periportal lymph node. ANESTHESIA: General endotracheal; Laura Flores CRNA. DRAINS: 7 mm Rishi and 14-Monegasque T-Tube. INDICATION: This 59-year-old man presented to the emergency room on 11/10/2019 with findings consistent with acute cholecystitis. The patient is on Eliquis for anticoagulation having undergone ablation therapy of atrial dysrhythmia. He presented with a bilirubin greater than 3 and markedly elevated liver enzymes including alkaline phosphatase. His ultrasound showed at least one stone in the gallbladder and a markedly dilated gallbladder and dilated intrahepatic ducts. He has been given intravenous antibiotics, parenteral pain medication allowing for resolution of his thrombin inhibitor medication-Eliquis and is now to undergo laparoscopic cholecystectomy with probable laparoscopic common duct exploration and other indicated procedures. He understands the risks of bleeding, infection, bile duct injury, need for open procedure and other unforeseen complications and wished to proceed. FINDINGS: Indeed the gallbladder was quite markedly inflamed and distended and dilated. A Electronically Signed By: LAURA MARQUIS MD 11/17/19 1023 PATIENT NAME: DEEPIKA FAIR OPERATIVE REPORT DATE OF : 62 REPORT #: [id number] PHYSICIAN: LAURA MARQUIS MD PCP: AMY HOLGUIN REPORT IS CONFIDENTIAL AND NOT TO BE RELEASED WITHOUT AUTHORIZATION [facility] [address], [place] [address] Signed laparoscopic approach was initially undertaken allowing for a cholangiogram to show a rather sizable distal duct stone and other stone debris. The transcystic duct laparoscopic exploration was undertaken including flexible choledochoscopy and extraction of a small common duct stone, but a larger common duct stone was far too large to be extracted through the cystic duct and almost certainly would be unable to be extracted via ERCP-papillotomy. In particular, regional availability of advanced ERCP specifically that used to break up common duct stones would be unlikely. On the basis of those findings, conversion to open cholecystectomy and open common duct exploration was undertaken. The large gallstone was removed on open exploration without problem and a T-tube was placed. Completion T-tube cholangiogram showed clearance of the duct, but no flow of contrast into the duodenum, though probable that it will soon. Notably the flexible ureteroscope did pass into the duodenum and therefore I know the ampulla to be patent. Spasm related to morphine administered during the operation may have accounted for that, which was not mitigated by glucagon administration. At conclusion, a T-tube emanated from the abdominal wall as does an accessory drain in the subhepatic space. DESCRIPTION OF PROCEDURE: The patient was brought to the operating room, given a general endotracheal anesthetic. Preoperative antibiotic Ancef was given. Sequential compression device stockings used and heparin subcutaneously administered. He was off his NOAC (Eliquis) for 48 hours. The abdomen was clipped and prepared with chlorhexidine solution and draped sterilely. A Rubin catheter was placed demonstrating orange bile consistent with jaundice. An infraumbilical incision was made and using an open Campos cannula technique, pneumoperitoneum was achieved to a level of 14 mmHg with carbon dioxide gas. Intra-abdominal inspection showed no sign of ascites or carcinomatosis. The gallbladder was identified as markedly dilated and quite inflamed. The liver was normal. Three additional trocars were placed in usual configuration in the subxiphoid, right midclavicular, and right anterior axillary line. The gallbladder could not be grasped to be elevated and therefore it was decompressed with a trocar. The puncture site was grasped and the gallbladder elevated. Using blunt electrocautery dissection, the markedly edematous gallbladder wall was dissected free ultimately identifying a rather large cystic duct. Mindful of the high probability of a common duct stone based on his clinical picture. Cholangiography was undertaken showing free flow of contrast in biliary tree. A markedly dilated biliary tree was noted and a rather sizable stone was noted in the distal duct. Despite its size, given the size of the cystic duct, it was thought possible that with dilation of the cystic duct it could be extracted endoscopically. On that basis, a flexible wire was passed down the cystic duct into the duodenum. X-rays confirmed the position. A balloon dilator device was passed over the wire and Electronically Signed By: LAURA MARQUIS MD 11/17/19 1023 PATIENT NAME: DEEPIKA FAIR OPERATIVE REPORT DATE OF : 62 REPORT #: [id number] PHYSICIAN: LAURA MARQUIS MD PCP: AMY HOLGUIN REPORT IS CONFIDENTIAL AND NOT TO BE RELEASED WITHOUT AUTHORIZATION [address], [place] [address] Signed over and across the ampulla, the ampulla was dilated and balloon decompressed and withdrawn to the cystic duct, which was then dilated. The wire and balloon dilator were then removed. A small trocar was placed in the epigastric area allowing for passage of a flexible choledochoscope into the cystic duct. It was passed down the cystic duct without impediment in the distal duct. There was noted to be the stone. It was not easily visualized. Irrigating fluid within the nephroscope was maintained. The large stone had been previously identified on cholangiography, it was not readily visible. There was another stone in the distal duct, which was grasped and extracted with a basket. Repeated maneuvers of passage of the scope into the duct were undertaken and the scope was ultimately passed actually into the duodenum. Mindful that it would be quite unlikely to flush the large stone and was previously seen into the duct. Flexible choledochoscope was removed and cholangiogram repeated. Repeat cholangiogram demonstrated extremely large stone in the proximal biliary tree near the left and right hepatic duct confluence. Likely the irrigating the fluid had allowed the stone to migrate more proximally now out of reach of the nephroscope. Given the size of the stone, consideration was made for whether ERCP papillotomy would allow for passage. It was quite unlikely given the size of the stone. On that basis, conversion to open operation was deemed advisable. The trocars were removed under direct visualization showing no sign of bleeding. The infraumbilical fascial incision was reapproximated with interrupted 0 Vicryl suture and a running 0 PDS suture. The right subcostal incision was made in the standard way in transecting the skin, subcutaneous tissue, anterior rectus sheath, rectus muscle, posterior rectus sheath, and its attendant peritoneum. The abdomen was entered without problem. The gallbladder was largely dissected free already. A Bookwalter retractor was used to provide exposure. The gallbladder was excised from the liver and the cystic duct was doubly clipped and divided. Further dissection of the cystic duct showed an enlarged peripancreatic and pericholecystic lymph node. This lymph node was excised and passed as a specimen. Hemostasis was assured with a few small clips with all due care taken to avoid injury to important blood vessels. The edematous and fat over the common duct confluence was divided with electrocautery and blunt dissection identifying well the common bile duct. The cystic duct itself was rather dilated and it was dissected out more fully and the area completely viable was then secured with large clips. Plans were then made for the common bile duct exploration. Two 4-0 PDS sutures were used to stay sutures in the medial and lateral aspects of the common duct low down on the common duct to be in proximity to the duodenum. A stab incision was made in the anterior aspect of the common duct allowing for egress of irrigation fluid and contrast. The choledochotomy was extended with Yan scissors. Immediately noted with decompression of the fluid from the common duct was the large stone proximally located tumbling into position. This was extracted with a Eddie Electronically Signed By: LAURA MARQUIS MD 11/17/19 1023 PATIENT NAME: DEEPIKA FAIR OPERATIVE REPORT DATE OF : 62 REPORT #: [id number] PHYSICIAN: LAURA MARQUIS MD PCP: AMY HOLGUIN REPORT IS CONFIDENTIAL AND NOT TO BE RELEASED WITHOUT AUTHORIZATION [facility] [address] [place] [id number] Signed stone forceps without problem. It measured nearly 2 cm, it appeared. Irrigation was undertaken and no other stone debris was noted. Flexible choledochoscope was passed distally and proximally, showing no sign of retained stone or other problem. Anatomy was conventional with no sign of neoplasm in the distal duct. A 14-Monegasque T-Tube was cut to the appropriate configuration and secured into the common duct. The choledochotomy secured with interrupted 4-0 PDS suture. Through a separate stab incision, a 7 mm flat Risih drain was placed in the subhepatic space and secured the skin with nylon suture. The T-tube was delivered through the abdominal wall through a separate stab incision inferior to the incision. There was noted to be some bleeding in the right abdominal wall area. This proved to be trocar site from before. This was secured with a #0 Vicryl. Irrigation was undertaken and hemostasis was assured. The liver bed appeared hemostatic. A small amount of hemostatic agent was applied to the liver where there was a small area of oozing. The posterior sheath and its attendant peritoneum were reapproximated with running bidirectional #1 PDS suture. The anterior rectus muscle and fascial layer were irrigated and closed with running #1 PDS. Subcutaneous tissue was irrigated and the skin was then closed with running subcuticular 3-0 Vicryl. The trocar sites were closed with interrupted 3-0 Vicryl. Steri-Strips applied. The T-tube and the drain were secured to the skin with an Op-Site dressing. Silver sponge dressing was applied to the subcostal incision. The patient was ultimately extubated and transported to the recovery room in good condition having suffered no complications. Sponge, needle, and counts reported as correct x3. The operation was prolonged, complicated, and difficult for the aforementioned obvious reasons lasting at least three times longer than usual. Starting time of the operation was approximately 3:30, ending time 4:30. MD LINA Carlin/BIANCA /[id number] Electronically Signed By: LAURA MARQUIS MD 11/17/19 1023 PATIENT NAME: DEEPIKA FAIR OPERATIVE REPORT DATE OF : 62 REPORT #: [id number] PHYSICIAN: LAURA MARQUIS MD PCP: AMY HOLGUIN REPORT IS CONFIDENTIAL AND NOT TO BE RELEASED WITHOUT AUTHORIZATION [address] [place], [place] [address] Signed cc: Amy Holguin Copies: AMY HOLGUIN ~ Electronically Signed By: LAURA MARQUIS MD 11/17/19 1023 PATIENT NAME: DEEPIKA FAIR OPERATIVE REPORT DATE OF : 62 REPORT #: [id number] PHYSICIAN: LAURA MARQUIS MD PCP: AMY HOLGUIN REPORT IS CONFIDENTIAL AND NOT TO BE RELEASED WITHOUT AUTHORIZATION
--- NOTE | 2019-11-17 10:24 | DS ---
[facility] [address], [place] [address] Signed ADMISSION DATE: 11/11/2019 DISCHARGE DATE: 11/16/2019 REASON FOR ADMISSION: This 59-year-old [place] man lives in [place], [place], has had increasing epigastric and right subcostal pain for the past number of weeks. He has been taking antacids, which has been beneficial sometimes. He is known to this institution, having undergone colonoscopy by Dr. Dunlap in 2016 as well as upper endoscopy. His pain had worsened and he presented to emergency room where he was evaluated by Dr. Hong and found to have tenderness in the epigastric area. An imaging study included gallbladder ultrasound showed gallbladder, which was hydropic in appearance with a single stone and a dilated common bile duct. He is considered likely to have biliary obstruction with a presenting total bilirubin of 2.3 with an alkaline phosphatase of 446, ALT 240, AST of 235. He is admitted for further evaluation and care. Of special note, the patient takes Eliquis on the basis of his prescription from his provider, Dr. Foss. The patient has had ablation of an atrial fibrillation dysrhythmia in the past and remains in normal sinus rhythm, but with occasional PVCs. PERTINENT PHYSICAL EXAMINATION: GENERAL: Showed an obese [place] man, who looked to be in no severe distress at this time. He is not systemically toxic. HEENT: Mucous membranes were dry. NECK: Trachea midline. CHEST: Clear. HEART: Regular without murmur. ABDOMEN: Obese, but soft. There is tenderness in the epigastric and right subcostal area. There is no palpable mass. He had no clinical jaundice at presentation. LABORATORY DATA: Admission white count was 12.3, hematocrit of 38.2, platelets 327. Liver enzymes as previously described. HOSPITAL COURSE: The patient was admitted, given fluid resuscitation, intravenous antibiotic Ancef. Operation though clearly indicated could not be undertaken at that time on the basis of his dosage with Eliquis and waiting 48 hours for natural clearance of the medication was deemed advisable. Consultation was undertaken with Dr. Diane on the basis of his diabetes and other medical issues. Electronically Signed By: LAURA MARQUIS MD 11/17/19 1024 PATIENT NAME: DEEPIKA FAIR DISCHARGE SUMMARY DATE OF : 62 REPORT #: [id number] PHYSICIAN: LAURA MARQUIS MD PCP: JOYCE HOLGUIN REPORT IS CONFIDENTIAL AND NOT TO BE RELEASED WITHOUT AUTHORIZATION [facility] [address], [place] [address] Signed The patient had worsening of his liver enzymes and bilirubin elevation as well. He did not feel more poorly, but clearly a high probability of common duct stones was considered. A plan for laparoscopic cholecystectomy with possible laparoscopic common duct was outlined to him and his . They understood and wished to proceed. On November 12, 2019, he underwent laparoscopy with laparoscopic common duct exploration. The gallbladder was impressively inflamed, markedly so and very edematous. The cystic duct was rather large. A transcystic duct exploration was undertaken including flexible choledochoscopy. Extraction of the distal common duct stone was undertaken. Cholangiogram was repeated showing a much larger stone in the proximal biliary tree in the common hepatic duct. The size of the stone was such that extraction to the cystic duct would be quite unlikely and even an ERCP related papillotomy would be unlikely successful extraction of such a large stone. On that basis, conversion to open operation was undertaken, for which, cholecystectomy was completed and open common duct exploration of choledochoscopy undertaken with extraction of the large stone. Placement of a T-tube was undertaken as well. A postprocedure T-tube cholangiogram was considered normal. He did not have passage of contrast into the duodenum at that point, likely related to intraoperative use of morphine and despite use of glucagon to relax the sphincter. An accessory drain was placed as usual. Excision of periportal lymph node was undertaken as well. Postoperatively in the recovery room, he had significant tachyarrhythmia, thought to be a PSVT with a heart rate into the 160s level without associated hypotension. Dr. Diane was available to advise and prescribed intravenous beta lucero, which was helpful in controlling the rhythm. He was watched in the intensive care unit under telemetry that night, which showed no further dysrhythmia. The T-tube was placed to gravity drainage and the accessory drain showed only serosanguineous drainage. No sign of bile leak. He had progressive recovery, was transferred to the regular floor with telemetry. On November 15, 2019, he underwent T-tube cholangiogram, which showed complete clearance of the duct with good flow of contrast in the duodenum and no sign of leakage. The T-tube was then capped off. By the day of discharge, there was no evidence of bile leak in the accessory drain, which was removed. The T-tube remained capped and without problems. His liver enzymes have improved. His bilirubin at time of discharge was 0.9. His alkaline phosphatase 197, ALT 57, and AST 64. It is anticipated he will be discharged home with a T-tube capped. The accessory drain has been removed without problem. He will maintain a regular diet. Electronically Signed By: LAURA MARQUIS MD 11/17/19 1024 PATIENT NAME: DEEPIKA FAIR NEY DISCHARGE SUMMARY DATE OF : 62 REPORT #: [id number] PHYSICIAN: LAURA MARQUIS MD PCP: JOYCE HOLGUIN REPORT IS CONFIDENTIAL AND NOT TO BE RELEASED WITHOUT AUTHORIZATION [facility] [address], [place] [address] Signed As regards to his Eliquis, it will be restarted in seven days. Further management of his Eliquis long-term will be undertaken by his primary provider, Dr. Foss. FOLLOWUP PLANS: He will return to see me in approximately 4 weeks. Although it is usually my custom to perform a T-tube cholangiogram before removal of the device and on this occasion that may not be necessary and may be cumbersome, particularly as he lives in [place], [place], far away. DISCHARGE MEDICATIONS: 1. Ibuprofen 600 mg p.o. q.6 hours as needed for pain, #60. 2. Tylenol Extra Strength 500 mg two tablets p.o. q.6 hours as needed for pain, #60. He will resume his usual medications of lisinopril 20 mg p.o. daily, oxybutynin chloride 5 mg p.o. at bedtime, Crestor 20 mg p.o. at bedtime, insulin (Lantus 100 units/mL, 16 units subcutaneously at bedtime, Toprol-XL 25 mg p.o. at bedtime, and Trulicity 1.5 mg subcutaneously weekly on . As noted previously, Apixaban (Eliquis) will be started 5 mg b.i.d., November 22, 2019. DISCHARGE DIAGNOSES: 1. Severe acute calculus cholecystitis with choledocholithiasis, elevated liver enzymes. 2. Status post laparoscopic cholecystectomy and common duct exploration with extraction of distal stone, conversion to open cholecystectomy with extraction of very large stone and placement of T-tube. 3. History of atrial dysrhythmia (atrial fibrillation) with ablation, but with episodic tachycardic arrhythmia and PVCs. 4. Obesity. 5. Diabetes. 6. Hypertension. Laura Marquis MD JM/MODL /[id number] cc: Partha Diane MD Electronically Signed By: LAURA MARQUIS MD 11/17/19 1024 PATIENT NAME: DEEPIKA FAIR DISCHARGE SUMMARY DATE OF : 62 REPORT #: [id number] PHYSICIAN: LAURA MARQUIS MD PCP: JOYCE HOLGUIN REPORT IS CONFIDENTIAL AND NOT TO BE RELEASED WITHOUT AUTHORIZATION [facility] [address] [place] [id number] Pipo Banuelos Copies: PARTHA DIANE MD, KELLY DEAN MD ~ Electronically Signed By: LAURA MARQUIS MD 11/17/19 1024 PATIENT NAME: DEEPIKA FAIR DISCHARGE SUMMARY DATE OF : 62 REPORT #: [id number] PHYSICIAN: LAURA MARQUIS MD PCP: JOYCE HOLGUIN REPORT IS CONFIDENTIAL AND NOT TO BE RELEASED WITHOUT AUTHORIZATION
== END 2019-11-16 15:05 | disposition home or self-care (01) | DRG 412 ==
LOC: ED 21:13 → MS 21:15 → ED 21:15 → MS 11-11 01:33 → CCU 11-11 01:34 → MS 11-11 10:30 → CCU 11-12 21:10 → MS 11-13 17:15
PROVIDERS: ADMIT Surgery
PROC: 0FC90ZZ Extirpation of Matter from Common Bile Duct, Open Approach (ICD-10-PCS; 2019-11-12)
PROC: 0F9900Z Drainage of Common Bile Duct with Drainage Device, Open Approach (ICD-10-PCS; 2019-11-12)
PROC: 07BB0ZX Excision of Mesenteric Lymphatic, Open Approach, Diagnostic (ICD-10-PCS; 2019-11-12)
PROC: 0FC94ZZ Extirpation of Matter from Common Bile Duct, Percutaneous Endoscopic Approach (ICD-10-PCS; 2019-11-12)
PROC: 0FT40ZZ Resection of Gallbladder, Open Approach (ICD-10-PCS; principal; 2019-11-12 15:00)
DX: K80.43 Calculus of bile duct with acute cholecystitis with obstruction (principal); K82.1 Hydrops of gallbladder; I47.1 Supraventricular tachycardia; F17.210 Nicotine dependence, cigarettes, uncomplicated; I10 Essential (primary) hypertension; E11.65 Type 2 diabetes mellitus with hyperglycemia; M54.9 Dorsalgia, unspecified; G89.29 Other chronic pain; E78.5 Hyperlipidemia, unspecified; I48.0 Paroxysmal atrial fibrillation; E83.42 Hypomagnesemia; E66.9 Obesity, unspecified; Z68.30 Body mass index [BMI] 30.0-30.9, adult; Z53.31 Laparoscopic surgical procedure converted to open procedure; Z82.3 Family history of stroke; Z88.5 Allergy status to narcotic agent; Z88.8 Allergy status to other drugs, medicaments and biological substances; Z79.01 Long term (current) use of anticoagulants; Z79.4 Long term (current) use of insulin; Z79.899 Other long term (current) drug therapy
CPT/HCPCS: 00790; 36415; 47531; 74300; 76705; 80048; 80053; 81001; 82247; 82465; 83615; 83690; 83735; 84100; 84478; 84484; 84550; 85025; 93005; 93010; 94760; 96361; 99285-25; 99406; A9270; C1726; C1769; C1894; J0330; J0690; J1100; J1170; J1610; J1644; J1815; J1885; J2001; J2250; J2270; J2405; J2704; J2765; J3010; J3475; J7030; J7121; Q9967

== ENCOUNTER 2021-04-09 13:44 | Emergency (ER) | payer BC, OTHER ==
[~2021-04-09] VITALS: Ht 172.7 cm; Wt 93.4 kg
[~2021-04-09 13:44] MED LIST changes: +IBUPROFEN600 MG PO; +LANTUS SOL100 UNIT/1 SUB-Q; +LANTUS100 UNITS/ SUB-Q; +TOPROL XL25 MG PO; +TRULICITY1.5 MG/0.5 SUB-Q; +TYLENOL EXTRA500 MG PO
[2021-04-09] MEDS ORDERED: OZEMPIC1 MG/0.75 SUB-Q (14:13)
--- NOTE | 2021-04-09 18:34 | EKG ---
[facility] [address] [facility] [place] [address] Signed Normal sinus rhythm Right bundle branch block Abnormal ECG When compared with ECG of 05-SEP-2020 18:03, Right bundle branch block is now present Confirmed by ANUM OBREGON MD ([id number]) on 04/09/2021 6:33:57 PM Electronically Signed By: ANUM OBREGON MD 04/09/21 1834 PATIENT NAME: DEEPIKA FAIR Electrocardiogram DATE OF : 62 PHYSICIAN: ANUM OBREGON MD REPORT #: [id number] REPORT IS CONFIDENTIAL AND NOT TO BE RELEASED WITHOUT AUTHORIZATION
== END 2021-04-09 16:05 | disposition home or self-care (01) ==
LOC: ED 13:44
DX: K29.00 Acute gastritis without bleeding (principal); I10 Essential (primary) hypertension; E11.9 Type 2 diabetes mellitus without complications; I48.91 Unspecified atrial fibrillation; F17.200 Nicotine dependence, unspecified, uncomplicated; Z88.8 Allergy status to other drugs, medicaments and biological substances; Z88.5 Allergy status to narcotic agent; Z79.899 Other long term (current) drug therapy; Z79.4 Long term (current) use of insulin
CPT/HCPCS: 80053; 81001; 83690; 84484; 85025; 93005; 93010; 96374; 99284-25; C9113

== ENCOUNTER 2023-08-02 10:41 | Emergency (ER) | payer BC, OTHER ==
[~2023-08-02] VITALS: Ht 172.7 cm; Wt 93.7 kg
[~2023-08-02 10:41] MED LIST changes: -LISINOPRIL20 MG PO; +LISINOPRIL30 MG; +OZEMPIC1 MG/0.75 SUB-Q
--- OUTSIDE RECORDS SUMMARY | 2023-08-02 10:44 | XMS ---
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 Sofiya has no Care Guidelines for this patient. Asha VISIT COUNT (12 MO.) 2 [facility] Brooke ([facility]) 1 [facility] TOTAL 3 NOTE: Visits indicate total known visits. ED/[facility] [place] [place] VISIT TRACKING (12 MO.) 08[facility]02[facility]2023 10:41 [facility] [place] [facility] COMPLAINT: - HEART RATE ISSUE 07/21/2023 11:11 [facility] [place] ([place] TYPE: Emergency DIAGNOSES: - Other specified cardiac arrhythmias - Dizziness - Low Pulse, Chest Pain 07/19/2023 14:05 [facility] [place] TYPE: Emergency DIAGNOSES: - Bradycardia, unspecified - Dizziness - Low Pulse, Dizzy, Headache INPATIENT VISIT TRACKING (12 MO.) No inpatient visits to display in this time frame [email or web address]
[2023-08-02] MEDS ORDERED: AMITRIPTYLINE H25 MG PO (11:13)
[2023-08-02] MEDS ORDERED: ALL DAY ALLERGY10 MG (11:14)
[2023-08-02 11:15] LABS: BASOPHILS 0.6 % (0-2); EOSINOPHILS 0.7 % (0-6); HEMATOCRIT 43.8 % (35.0-50.0); HEMOGLOBIN 14.5 g/dL (12.0-18.0); MCH 29.4 (27-36); MCHC 33.2 g/dl (30-36); MCV 88.6 fl (81-99); MONOCYTES 4.8 % (0-12); NEUTROPHILS 73.9 % (39-80); PLATELET COUNT 340 K/uL (140-440); RBC 4.94 M/ul (4.3-5.7); RDW 13.9 (10.5-15.0)
[2023-08-02] MEDS ORDERED: FLOMAX0.4 MG (11:19)
[2023-08-02 11:26] LABS: ALBUMIN 3.5 g/dL (3.4-5.0); ALBUMIN/GLOBULIN RATIO 1.03 (1.1-2.4); ANION GAP 13.7 (7-21); BILIRUBIN, TOTAL 0.6 ng/dL (0.2-1.0); BUN/CREATININE RATIO 10.81 (6.0-28.6); CALCIUM 8.8 mg/dL (8.5-10.1); CREATININE, SERUM 1.11 mg/dL (0.70-1.30); POTASSIUM 4.7 mmol/L (3.5-5.1); PROTEIN, TOTAL 6.9 g/dL (6.4-8.2)
[2023-08-02 13:24] VITALS: BP 120/70
--- NOTE | 2023-08-02 21:47 | EKG ---
[facility] [address] [facility] [place] [address] Signed Normal sinus rhythm Right bundle branch block Abnormal ECG When compared with ECG of 09-APR-2021 14:38, No significant change was found Confirmed by Ruslan Mukherjee MD () on 08/02/2023 9:47:16 PM Electronically Signed By: RUSLAN MUKHERJEE MD 08/02/232146 PATIENT NAME: DEEPIKA FAIR Electrocardiogram DATE OF : 62 PHYSICIAN: RUSLAN MUKHERJEE MD REPORT #: [id number] REPORT IS CONFIDENTIAL AND NOT TO BE RELEASED WITHOUT AUTHORIZATION
== END 2023-08-02 13:30 | disposition home or self-care (01) ==
LOC: ED 10:41
PROVIDERS: Emergency Medicine
DX: R00.2 Palpitations (principal); R07.89 Other chest pain; I10 Essential (primary) hypertension; E11.9 Type 2 diabetes mellitus without complications; I48.91 Unspecified atrial fibrillation; F17.200 Nicotine dependence, unspecified, uncomplicated; Z88.5 Allergy status to narcotic agent; Z88.8 Allergy status to other drugs, medicaments and biological substances; Z79.899 Other long term (current) drug therapy; Z79.01 Long term (current) use of anticoagulants; Z79.4 Long term (current) use of insulin
CPT/HCPCS: 36415; 71045; 80053; 83735; 84484; 85025; 93005; 93010; 99285-25